=== PATIENT | female | born 1940 ===

== ENCOUNTER 2020-04-27 12:22 | Day surgery (SDC) | payer MEDICARE, OTHER ==
[~2020-04-27] VITALS: Ht 162.6 cm; Wt 75.0 kg
[2020-04-27] MEDS ORDERED: FISH OIL 1,2001 EAC7 (12:46)
[2020-04-27] MEDS ORDERED: MELA3 (12:46)
[2020-04-27] MEDS ORDERED: Lovastatin20 MG (12:50)
[2020-04-27] MEDS ORDERED: CALCIUM 600 +1 EA11 (12:50)
[2020-04-27] MEDS ORDERED: Lisinopril2.5 MG (12:50)
--- NOTE | 2020-04-27 14:03 | NUR ---
04/27/20 1403 Mellisa Newsome ABNORMAL 3 LEAD IN PREOP. 12 LEAD PERFORMED AFTER RECOMMENDATION BY DR RIVAS. ANALYSIS CONFIRMED AND OK TO PROCEED. DR HUERTA AWARE. PCP COMMUNICATION LETTER FAXED.
== END 2020-04-27 15:08 | disposition home or self-care (01) ==
LOC: ORSCSDS 12:22
PROVIDERS: Surgery
PROC: 0DJD8ZZ Inspection of Lower Intestinal Tract, Via Natural or Artificial Opening Endoscopic (ICD-10-PCS; principal; 2020-04-27 14:15)
DX: Z12.11 Encounter for screening for malignant neoplasm of colon (principal); Z86.010 Personal history of colon polyps; K57.30 Diverticulosis of large intestine without perforation or abscess without bleeding; I10 Essential (primary) hypertension; R73.03 Prediabetes; Z87.891 Personal history of nicotine dependence; E78.5 Hyperlipidemia, unspecified; Z79.899 Other long term (current) drug therapy
CPT/HCPCS: 82947; 93005; 93010; J7120